=== PATIENT | male | born 1975 | race Caucasian/White ===

== ENCOUNTER → 2020-11-07 | Outpatient (CLI) | payer BC ==
[~2020-11-07] MED LIST: FLEXERIL 10 MG10 MG PO; NAPROSYN500 MG PO; NORCO 5-325 TA1 EACH PO; ZOFRAN ODT 4 MG4 MG SL
== END ==
LOC: HEART 5 10:17
DX: R07.9 Chest pain, unspecified (principal)

== ENCOUNTER → 2021-04-24 | Outpatient (CLI) | payer BC | LOC: KOH-I 14:23 | DX: R51.9 Headache, unspecified (principal) | CPT/HCPCS: 70450 ==

== ENCOUNTER → 2021-12-06 | Outpatient (CLI) | payer BC | LOC: EMI 13:00 | DX: G43.709 Chronic migraine without aura, not intractable, without status migrainosus (principal); R90.82 White matter disease, unspecified | CPT/HCPCS: 70551 ==